=== PATIENT | female | born 1960 | race Caucasian/White ===

== ENCOUNTER → 2023-12-25 10:49 | Outpatient (REF) | payer MEDICARE, SELFPAY | LOC: WDC 10:49 | PROVIDERS: ATTENDING PHYSICIAN Family Medicine | DX: Z12.31 Encounter for screening mammogram for malignant neoplasm of breast (principal); M81.0 Age-related osteoporosis without current pathological fracture | CPT/HCPCS: 77080 ==

== ENCOUNTER → 2024-12-29 09:00 | Outpatient (REF) | payer MEDICARE, SELFPAY | LOC: WDC 09:00 | PROVIDERS: ATTENDING PHYSICIAN Family Medicine | DX: Z12.31 Encounter for screening mammogram for malignant neoplasm of breast (principal) | CPT/HCPCS: 77063; 77067 ==

== ENCOUNTER → 2025-01-23 14:46 | Outpatient (REF) | payer MEDICARE, SELFPAY | LOC: HWRAD 14:46 | PROVIDERS: ATTENDING PHYSICIAN Family Medicine | DX: H93.A9 Pulsatile tinnitus, unspecified ear (principal) | CPT/HCPCS: 93880 ==

== ENCOUNTER 2025-02-14 06:22 | Day surgery (SDC) | payer MEDICARE, SELFPAY | END 2025-02-14 16:52 | disposition home or self-care (01) | LOC: GI 06:22 | PROVIDERS: ATTENDING PHYSICIAN Internal Medicine Gastroenterology | DX: Z12.11 Encounter for screening for malignant neoplasm of colon (principal); R19.5 Other fecal abnormalities; K57.30 Diverticulosis of large intestine without perforation or abscess without bleeding; K64.9 Unspecified hemorrhoids; K62.89 Other specified diseases of anus and rectum; D12.5 Benign neoplasm of sigmoid colon | CPT/HCPCS: 45380; 88305 ==

== ENCOUNTER 2025-03-16 06:18 | Day surgery (SDC) | payer MEDICARE, SELFPAY ==
[2025-03-16 10:41] VITALS: BMI 30.3
[2025-03-16 10:42] VITALS: BMI 30.3
[2025-03-16 10:43] VITALS: BP 186/88
[2025-03-16 13:05] VITALS: BP 132/78
[2025-03-16 13:15] VITALS: BP 135/77
[2025-03-16 13:30] VITALS: BP 153/80
[2025-03-16 13:45] VITALS: BP 162/76
== END 2025-03-16 15:09 | disposition home or self-care (01) ==
LOC: SDS 06:18
PROVIDERS: ATTENDING PHYSICIAN Internal Medicine Gastroenterology
DX: D49.0 Neoplasm of unspecified behavior of digestive system (principal); K62.89 Other specified diseases of anus and rectum; Q43.9 Congenital malformation of intestine, unspecified; K64.9 Unspecified hemorrhoids
CPT/HCPCS: 45342; 45331; 88173; 88305